=== PATIENT | female | born 1990 | race Caucasian/White ===

== ENCOUNTER 2017-07-19 16:08 | Emergency (ER) | payer BC, SELFPAY | END 2017-07-19 19:17 | disposition home or self-care (01) | PROVIDERS: Emergency Provider Emergency Medicine; Family Provider Family Medicine; PCP Family Medicine; Visit Provider Emergency Medicine | DX: R51 Headache (principal); R19.7 Diarrhea, unspecified | CPT/HCPCS: 70250; 70450; 72040; 74022; 80053; 83690; 85025; 99058; 99284 ==

== ENCOUNTER 2017-08-08 14:36 | Emergency (ER) | payer BC, SELFPAY ==
[2017-08-08 14:58] VITALS: PULSE 89; RESP 20; TEMP 36.8; O2SAT 98; BMI 46.3
[2017-08-08 19:36] LABS: Bacteria Urine Moderate (10-30); Culture Indicated Urine Specimen Cultured; Squamous Epithelial Cell Urine 1-5 /HPF; WBC Urine 1-5/HPF (0-5/HPF)
[2017-08-08 21:21] VITALS: BP 133/67; PULSE 78; RESP 16; O2SAT 98
[2017-08-09] MEDS: ONDANSETRON 4 MG ODT PO (00:03)
[2017-08-09] MEDS: NITROFURANTOIN ER 100 MG CAPSULE PO (00:04)
[2017-08-09] MEDS: ACETAMINOPHEN 325 MG TABLET 650 MG PO (00:04)
--- NOTE | 2017-08-09 00:20 | DI.US.S_ITS ---
PROCEDURE: US OB <= 14 WEEKS FETUS INDICATIONS: PAIN OUTSIDE/PRIOR DATING DATA: Last menstrual period (LMP): Not known. LMP-based estimated date of delivery (MEGAN): Not applicable. First dating scan (date and location): 08/09/17. Estimated date of delivery (MEGAN) from first dating scan: 04/04/18. TECHNIQUE: Real-time scanning was performed of the fetus and maternal pelvic organs, with image documentation. Endovaginal scanning was also performed to better visualize the fetus and maternal ovaries. COMPARISON: None. FINDINGS: Embryo: Early intrauterine identified. [place]-rump length measures 0.37 cm corresponding to ultrasound estimated gestational age of 6 weeks 0 days. heart rate measured at 100 beats per minute. Measurement variability in dating: +/- 4 weeks by LMP, +/- 7 days by mean sac diameter (use before 6 weeks gestation if crown-rump length not able to be measured), +/- 5 days by crown-rump length (up to 8 weeks 6 days gestation), +/- 7 days by crown-rump length (up to 13 weeks 6 days gestation). Maternal organs: Ovaries are sonographically normal.. Limited images through the kidneys demonstrate no hydronephrosis. IMPRESSION: Single living intrauterine with ultrasound estimated gestational age of 6 weeks 0 days corresponding to an ultrasound MEGAN of 04/04/18. Dictated by: Aminata Romero MD, PhD on 08/09/2017 at 8:41 Approved by: Aminata Romero MD, PhD on 08/09/2017 at 8:42
[2017-08-09 01:04] LABS: Add Manual Diff / Slide Review NO; Basophils Percent Auto 0.6 % (0-2); Hematocrit 38.1 % (36-46); Hemoglobin 12.8 g/dL (12.0-16.0); Lymphocytes Percent Auto 31.6 % (25-40); Mean Corpuscular HGB Conc 33.6 % (30-36); Mean Corpuscular Hemoglobin 28.9 PG (26-34); Monocytes Percent Auto 5.3 % (3-14); Neutrophils Absolute Auto 6800 /uL (3000-5900); Neutrophils Percent Auto 61.5 % (50-75); Platelet Count 271 X10^3/uL (150-400); Red Blood Cell Count 4.43 X10^6/uL (4.0-5.2); Red Cell Distribution Width 14.7 % (11.6-14.8)
[2017-08-09 01:17] LABS: Alanine Aminotransferase 57 IU/L (9-52); Albumin 4.2 g/dL (3.5-5.0); Albumin Globulin Ratio 1.3 (1.0-2.8); Alkaline Phosphatase 73 U/L (38-126); Aspartate Aminotransferase 42 IU/L (14-36); Bilirubin Total 0.5 mg/dL (0.2-1.3); Calcium 9.1 mg/dL (8.4-10.2); Estimated Glomerular Filt Rate > 60.0 mL/min (>60); Globulin 3.3 g/dL (1.7-4.1); Glucose 106 mg/dL (70-100); HEMOLYSIS < 15 (0-50); Potassium 3.9 mmol/L (3.4-5.1); Sodium 139 mmol/L (137-145); Total Protein 7.5 g/dL (6.3-8.2)
--- NOTE | 2017-08-09 01:32 | PC.NURSE ---
Received call from Alysha in blood bank. Unable to input blood type tonight. Pt's blood type is O+, Dr Mabry aware.
--- NOTE | 2017-08-09 01:34 | ED_ITS ---
HPI - Female Genitourinary General Chief complaint: Urogenital-Female Stated complaint: KIDNEY PAIN Time Seen by Provider: 08/08/17 23:18 Source: patient and RN notes reviewed Mode of arrival: ambulatory Limitations: no limitations History of Present Illness HPI Narrative: Patient is a 27-year-old female who presents with right-sided flank pain ongoing for last last started last night. She has had some lower abdominal bloating but no abnormal vaginal bleeding or discharge. She has been feeling nauseated as well. No fever chills. No vomiting. No is drools lower abdominal pain. Onset (ago): day(s) Female Urogenital Radiation: R Flank Related Data Home Medications Medication Instructions Recorded Confirmed naproxen sodium [Aleve] 220 mg PRN PRN #0 01/27/17 08/09/17 Previous Rx's Medication Instructions Recorded escitalopram oxalate [Lexapro] 10 mg PO QDAY #90 tab 02/27/17 nitrofurantoin monohyd/m-cryst 100 mg PO Q12H 7 Days #14 cap 08/09/17 [Macrobid] Allergies Allergy/AdvReac Type Severity Reaction Status Date / Time minocycline [MINOCYCLINE] Allergy Mild hives Verified 08/09/17 00:03 peanut [PEANUT] Allergy Mild gi upset Verified 08/09/17 00:03 Penicillins [PENICILLINS] Allergy Mild hives and Verified 08/09/17 00:03 vomiting citalopram [From CELEXA] Allergy Unknown rash Verified 08/09/17 00:03 Review of Systems Review of Systems All systems reviewed & are unremarkable except as noted in HPI and below Constitutional Denies chills, Denies fever(s), Denies lethargy and Denies weakness Cardiovascular Denies chest pain, Denies irregular heart rhythm, Denies lightheadedness, Denies palpitations, Denies dyspnea, Denies dyspnea on exertion and Denies orthopnea Respiratory Denies cough, Denies dyspnea, Denies dyspnea on exertion and Denies wheezing Gastrointestinal Gastrointestinal: Denies abdominal pain, Denies change in bowel habits, Denies diarrhea, Denies nausea and Denies vomiting Genitourinary Reports as per HPI and Reports amenorrhea (years) Musculoskeletal Denies back pain, Denies muscle weakness, Denies numbness and Denies tingling Neurologic Denies numbness, Denies tingling and Denies weakness Endocrine Denies palpitations Allergic/Immunologic Denies wheezing PMFSH Past Medical History Attestation statement: The following information was validated with the patient. Family history: Reports no significant family history Exam Const General: cooperative and well developed Nutritional Appearance: well nourished Orientation: alert, awake, oriented x3 and not confused HENSD Head: normocephalic and atraumatic Ears: external ears normal and TM's normal bilaterally Mouth: oral mucosae normal and moist mucous membranes Teeth and gingiva: dentition normal Throat: tonsils normal and uvula midline Neck Neck: normal visual inspection, trachea midline, No lymphadenopathy, No midline deformity and No JVD Lymphatic: No lymphedema Resp Effort & Inspection: normal respiratory effort, able to speak in complete sentences, no respiratory distress and no use of accessory muscles Auscultation: clear to auscultation bilaterally, no rales, no rhonchi and no wheezes Cardio Rate: regular rate Rhythm: regular rhythm Heart Sounds: no click, no gallops, no murmurs and no rubs Pulses: normal peripheral pulses GI Inspection: non-distended Palpation: soft, no hepatosplenomegaly, No guarding, No pulsatile mass and No tender Auscultation: normal bowel sounds Other: Mild right CVA tenderness no left CVA tenderness Neuro General: alert, oriented x3 and gait normal Speech: speech normal Sensory Exam: no sensory deficits noted MDM - Female Genitourinary Medical Records Attestation: I reviewed the patient's medical records. Lab Data Attestation: I reviewed the patient's lab results. Result diagrams: 08/09/17 00:51 08/09/17 00:51 Lab Results 08/08/17 08/08/17 08/08/17 Range/Units 18:30 23:35 23:35 WBC Cancelled RBC Cancelled Hgb Cancelled Hct Cancelled MCV Cancelled MCH Cancelled MCHC Cancelled RDW Cancelled Plt Count Cancelled Neut % (Auto) Cancelled Lymph % (Auto) Cancelled [place] % (Auto) Cancelled Eos % (Auto) Cancelled Baso % (Auto) Cancelled Neut # (Auto) Cancelled Sodium Cancelled Potassium Cancelled Chloride Cancelled Carbon Dioxide Cancelled BUN Cancelled Creatinine Cancelled Estimated GFR Cancelled BUN/Creatinine Ratio Cancelled Glucose Cancelled Calcium Cancelled Total Bilirubin Cancelled AST Cancelled ALT Cancelled Alkaline Phosphatase Cancelled Total Protein Cancelled Albumin Cancelled Globulin Cancelled Albumin/Globulin Ratio Cancelled HCG, Quant Cancelled Specimen Hemolysis Cancelled Urine WBC 1-5/hpf (0-5/HPF) Ur Squamous Epith Cells 1-5 /hpf Urine Bacteria Moderate (10-30) H (None) Ur Culture Indicated? Specimen cultured Micro UA Comment Not Reportable Blood Type 08/08/17 08/09/17 08/09/17 Range/Units 23:35 00:51 00:51 WBC 11.0 RBC 4.43 Hgb 12.8 Hct 38.1 MCV 86.0 MCH 28.9 MCHC 33.6 RDW 14.7 Plt Count 271 Neut % (Auto) 61.5 Lymph % (Auto) 31.6 [place] % (Auto) 5.3 Eos % (Auto) 1.0 L Baso % (Auto) 0.6 Neut # (Auto) 6800 H Sodium 139 Potassium 3.9 Chloride 103.0 Carbon Dioxide 24.0 BUN 8.0 Creatinine 0.50 L Estimated GFR > 60.0 BUN/Creatinine Ratio 16.0 Glucose 106 H Calcium 9.1 Total Bilirubin 0.5 AST 42 H ALT 57 H Alkaline Phosphatase 73 Total Protein 7.5 Albumin 4.2 Globulin 3.3 Albumin/Globulin Ratio 1.3 HCG, Quant 6649.3 Specimen Hemolysis Urine WBC (0-5/HPF) Ur Squamous Epith Cells Urine Bacteria (None) Ur Culture Indicated? 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 Discharge Plan Departure Patient Disposition: Home, Self-Care Clinical Impression: , UTI (urinary tract infection) Discharge Date/Time: 08/09/17 01:44 Interventions: ED Discharge Assessment Last Done: 08/09/17 01:43 Instructions: Common Discomforts and Bodily Changes During , DI for Urinary Tract Infection (UTI) Activity Restrictions/Additional Instructions: CONGRATULATIONS!!!! Blood type O+ Some blood work is still pending ultrasound does show on 6 week fetus -take antibiotic as directed until gone -take Tylenol if needed for pain -call Dr. Banks's office to schedule follow-up appointment and care Return to ER if you should have any increasing abdominal pain, vaginal bleeding , fever Prescriptions: New nitrofurantoin monohyd/m-cryst [Macrobid] 100 mg capsule 100 mg PO Q12H 7 Days Qty: 14 RF: 0 No Action naproxen sodium [Aleve] 220 MG tablet 220 mg PRN PRN (Reason: Pain (Scale Score 1-3)) Qty: 0 RF: 0 escitalopram oxalate [Lexapro] 10 MG tablet 10 mg PO QDAY Qty: 90 RF: 3 Referrals: Ned Banks MD [Primary Care Provider] -
[2017-08-09 01:43] VITALS: BP 128/84; PULSE 86; RESP 16; TEMP 36.8; O2SAT 97
[2017-08-22 16:41] LABS: HCG Quantitative /Beta subunit 6649.3 mIU/mL
== END 2017-08-09 01:44 | disposition home or self-care (01) ==
PROVIDERS: Nurse Practitioner Family; Emergency Provider Emergency Medicine; Family Provider Family Medicine; PCP Family Medicine
DX: N39.0 Urinary tract infection, site not specified (principal); Z3A.01 Less than 8 weeks gestation of pregnancy
CPT/HCPCS: 36415; 76801; 76817; 80053; 81003; 81015; 81025; 84702; 85025; 86900; 86901; 87086; 99282; 99284

== ENCOUNTER → 2017-09-04 12:03 | Outpatient (CLI) | payer BC, SELFPAY ==
[2017-09-04 12:11] LABS: RBC Urine None Seen (0-5/HPF)
[2017-09-04 13:08] LABS: Add Manual Diff / Slide Review NO; Basophils Percent Auto 0.2 % (0-2); Eosinophils Percent Auto 0.9 % (2-4); Hematocrit 38.6 % (36-46); Hemoglobin 13.3 g/dL (12.0-16.0); Lymphocytes Percent Auto 27.1 % (25-40); Mean Corpuscular HGB Conc 34.4 % (30-36); Mean Corpuscular Hemoglobin 29.3 PG (26-34); Monocytes Percent Auto 6.8 % (3-14); Neutrophils Absolute Auto 6700 /uL (3000-5900); Platelet Count 323 X10^3/uL (150-400); Red Blood Cell Count 4.54 X10^6/uL (4.0-5.2); White Blood Cell Count 10.3 X10^3/uL (4.5-11.0)
[2017-09-04 13:37] LABS: Appearance Urine UA CLEAR; Bilirubin Urine UA NEGATIVE (NEGATIVE); Color Urine UA YELLOW; Glucose Urine UA NEGATIVE (Normal); Ketones Urine UA NEGATIVE (NEGATIVE); Leukocyte Esterase Urine UA NEGATIVE (NEGATIVE); Nitrite Urine UA Negative (Negative); Occult Blood Urine UA TRACE-INTACT (Negative); Protein Urine UA NEGATIVE (Negative); Urobilinogen Urine UA 0.2 E.U./dL (0.2)
[2017-09-04 13:47] LABS: Bacteria Urine Moderate (10-30); Culture Indicated Urine Cult Not Indicated; Squamous Epithelial Cell Urine 1-5 /HPF; WBC Urine 0-1/HPF (0-5/HPF)
[2017-09-04 17:07] LABS: Hepatitis B Surface Antigen NEGATIVE s/c (NEGATIVE); Rubella Antibody IgG 23.7 IU/mL (>15)
[2017-09-05 10:25] LABS: HIV 1 and 2 Antibody NEGATIVE (NEGATIVE); Hep C Virus Ab w/Reflex Quant NEGATIVE s/c (NEGATIVE)
== END ==
PROVIDERS: Obstetrics & Gynecology; Family Provider Family Medicine; PCP Family Medicine; Visit Provider Family Medicine
DX: Z34.91 Encounter for supervision of normal pregnancy, unspecified, first trimester (principal)
CPT/HCPCS: 36415; 80055; 81001; 86703; 86787; 86803; 86850; 86900; 86901

== ENCOUNTER → 2017-10-06 13:03 | Outpatient (CLI) | payer BC, SELFPAY | PROVIDERS: Family Provider Family Medicine; PCP Family Medicine; Visit Provider Physician Assistant | DX: N39.0 Urinary tract infection, site not specified (principal) | CPT/HCPCS: 87086 ==

== ENCOUNTER → 2017-11-06 09:01 | Outpatient (CLI) | payer BC, SELFPAY ==
[2017-11-11 16:05] LABS: AFP, Serum 40.6 ng/mL; Calc Gestational Age 18.7; Cigarette Smoker N; Donated Egg NOT GIVEN; Donor Egg Age NOT GIVEN; Estriol, Free 1.85 ng/mL; Inhibin A, Dimeric 105 pg/mL; Maternal Weight 307 lbs; Number of Fetuses 1; Previous Pregnancy Down Syndro NOT GIVEN; hCG, MoM 0.25; hCG, Serum 3.9 IU/mL
== END ==
PROVIDERS: Family Provider Family Medicine; PCP Family Medicine; Visit Provider Family Medicine
DX: Z3A.17 17 weeks gestation of pregnancy (principal)
CPT/HCPCS: 36415; 82105; 82677; 84702; 86336

== ENCOUNTER → 2017-11-17 07:40 | Outpatient (CLI) | payer BC, SELFPAY ==
--- NOTE | 2017-11-17 07:41 | DI.US.S_ITS ---
PROCEDURE: US OB >= 14 WEEKS FETUS INDICATIONS: 20 WEEKS ANATOMIC SURVEY OUTSIDE/PRIOR DATING DATA: Last menstrual period (LMP): Not available. LMP-based estimated date of delivery (MEGAN): None available. First dating scan (date and location): 08/09/17. Estimated date of delivery (MEGAN) from first dating scan: 04/04/18, plus or -5 days. TECHNIQUE: Real-time scanning was performed of the fetus, with image documentation and biometric measurements. Endovaginal scanning: Not needed for this study COMPARISON: None. FINDINGS: General: A single living intrauterine gestation is present. Presentation: Vertex. Placenta: Placental position is fundal, without previa. Amniotic fluid index: 14.7 cm, normal range is 5-24 cm. heart rate: 149 beats per minute. Maternal cervical canal: 3.2 cm long. Normal lower limit is 2.5 cm. biometrics: Biparietal diameter: 5.1 cm, 21 weeks 4 days Head circumference: 19.4 cm, 21 weeks 4 days Abdominal circumference: 14.8 cm, 20 weeks 1 day Femur length: 3.6 cm, 21 weeks 4 days Estimated gestational age from initial scan: 20 weeks 2 days Composite gestational age from present scan: 21 weeks 2 days Estimated weight and percentile: 382 g, 77th percentile Measurement variability for biometric dating: +/- 7 days from 14 weeks to 15 weeks 6 days gestation, +/- 10 days from 16 weeks to 21 weeks 6 days gestation, +/- 2 weeks from 22 weeks to 27 weeks 6 days gestation, +/- 3 weeks for 28 weeks gestation or later. weight reference: 4500 g or EFW >90/95% is considered macrosomia or large for gestational age. EFW <10% is small for gestational age. EFW 5% or less is considered intra-uterine growth restriction. Anatomic survey: Neuro: Ventricles are non-dilated at less than 10 mm. Cisterna magna is normal at 3-11 mm. Cerebellum is normal in size and morphology. Nuchal skin fold: Normal at less than 6 mm between 14-21 weeks gestational age. Face: Nose and lips, facial profile are normal. Spine: No evidence for spina bifida. Heart: 4-chambered heart is present, with normal ventricular outflow tracts. Diaphragm: Diaphragm is intact. Stomach: Left-sided stomach is present. Kidneys: No hydronephrosis. Normal is less than 5 mm in 2nd trimester, less than 7 mm in 3rd trimester. Cord: 3-vessel cord has orthotopic insertion. Bladder: Normal in size. Extremities: All 4 extremities identified. IMPRESSION: Appropriate interval growth, no anomalies seen. The delivery date is projected to be centered on 04/04/18, plus or -5 days, based on the first OB ultrasound (most accurate dating). Dictated by: Reagan Moreira M.D. on 11/17/2017 at 9:24 Approved by: Reagan Moreira M.D. on 11/17/2017 at 9:26
== END ==
PROVIDERS: Family Provider Family Medicine; PCP Family Medicine; Visit Provider Family Medicine
DX: Z34.92 Encounter for supervision of normal pregnancy, unspecified, second trimester (principal); Z3A.21 21 weeks gestation of pregnancy
CPT/HCPCS: 76811

== ENCOUNTER 2017-11-22 16:40 | Emergency (ER) | payer BC, SELFPAY ==
[2017-11-22 16:54] VITALS: BP 136/90; PULSE 87; RESP 16; TEMP 36.2; O2SAT 100; BMI 51.7
--- NOTE | 2017-11-22 17:34 | ED.NEUROSD ---
HPI - Neuro Symptoms/Deficit General Chief Complaint: Neuro Symptoms/Deficit Stated Complaint: STATES HAS A SHUNT, BABY HAS POSSIBLY MOVED IT Time Seen by Provider: 11/22/17 17:21 Source: patient Mode of arrival: ambulatory Limitations: no limitations History of Present Illness HPI Narrative: Patient is a 20 week EGA with a history of hydrocephalus and a [employer] shunt in place here for evaluation of concern for possible [employer] shunt issues. Patient states that for the past day or so she has had right-sided pain that has extended up into her neck. She is concerned that the baby may have ?dislodged ?the [employer] shunt. She states she had pain in her right side like this after she had the shunt placed. She was told by the operative surgeon that it was postoperative pain. She states that the pain is in her right flank and extends up to her right neck. She denies any headaches or vision changes which were the symptoms that she was having prior to the shunt placement. No fevers. She states that after she took her brawl off she started to have improvement of the symptoms. No vaginal bleeding. No abdominal pain. She called her OB doctor who told her to come to the emergency department. On Anticoagulants: No Related Data Home Medications Medication Instructions Recorded Confirmed acetaminophen 325 mg tablet 325 mg PO Q6H PRN 10/06/17 10/06/17 Previous Rx's Medication Instructions Recorded ondansetron 4 mg disintegrating 4 mg PO Q6H PRN #20 tab 11/14/17 tablet Allergies Allergy/AdvReac Type Severity Reaction Status Date / Time minocycline [MINOCYCLINE] Allergy Mild hives Verified 10/06/17 12:26 peanut [PEANUT] Allergy Mild gi upset Verified 10/06/17 12:26 Penicillins [PENICILLINS] Allergy Mild hives and Verified 10/06/17 12:26 vomiting citalopram [From CELEXA] Allergy Unknown rash Verified 10/06/17 12:26 flu vaccine AdvReac Severe Hx PTC can Uncoded 09/04/17 13:15 exacerbate symptoms Review of Systems Constitutional Denies fever(s), Denies frequent falls and Denies headache(s) Eyes Denies blurry vision, Denies change in vision and Denies diplopia ENT Ears, Nose, Mouth, and Throat: Denies vertigo, Denies dizziness, Denies facial pain and Denies headache(s) Cardiovascular Denies chest pain, Denies syncope, Denies edema and Denies dyspnea Respiratory Denies dyspnea Gastrointestinal Gastrointestinal: Denies abdominal pain, Denies nausea and Denies vomiting Genitourinary Denies dysuria Musculoskeletal Denies myalgias, Denies arthralgias and Denies numbness Integumentary/Breasts Denies lesions and Denies rash Neurologic Denies confusion, Denies vertigo, Denies dizziness, Denies syncope, Denies frequent falls, Denies headache(s) and Denies numbness Psychiatric Denies confusion Hematologic/Lymphatic Denies easy bleeding and Denies easy bruising [facility] Social History Smoking Status: Never smoker Exam Initial Vital Signs Initial Vital Signs: Vital Signs Temperature 97.1 F L 11/22/17 16:54 Pulse Rate 87 11/22/17 16:54 Respiratory Rate 16 11/22/17 16:54 Blood Pressure 136/90 H 11/22/17 16:54 Pulse Oximetry 100 11/22/17 16:54 Const General: cooperative, healthy appearing and comfortable HENMT Head: normal to inspection and normocephalic Resp Effort & Inspection: normal respiratory effort Auscultation: clear to auscultation bilaterally Cardio Rate: regular rate Rhythm: regular rhythm Skin Lesions: no lesions Rashes: no rashes Neuro General: alert, awake and oriented x3 Cranial Nerves: CN's II-XI intact bilaterally Cognition: normal cognition Speech: speech normal Gait: normal gait Motor: muscle tone normal throughout Sensory Exam: no sensory deficits noted Extrem General: normal to inspection Psych Appearance: grossly normal and well kempt Course Vital Signs - 8 hr 11/22/17 16:54 Temperature 97.1 F L Pulse Rate 87 Respiratory Rate 16 Blood Pressure 136/90 H Pulse Oximetry 100 MDM - Neuro Symptoms/Deficit [facility] Narrative Medical decision making narrative: Patient reports were improvement of symptoms after removing her brought here in the ER. I she has no symptoms such as headache or vision changes which is what she had when she had the shunt placed to begin with. We did discuss imaging however I feel that the radiation exposure especially during would not warrant the concern for abnormalities currently. The patient agrees with this. Patient was given return precautions. She expressed understanding and agreement with plan. Discharge Plan Departure Patient Disposition: Home Clinical Impression: Right-sided chest pain, Instructions: Hydrocephalus Activity Restrictions/Additional Instructions: Keep all of your scheduled medical appointments. Return to the emergency department for any new or worsening symptoms Prescriptions: No Action acetaminophen [Tylenol] 325 mg tablet 325 mg PO Q6H PRNRF: 0 ondansetron [Zofran ODT] 4 mg tablet,disintegrating 4 mg PO Q6H PRN (Reason: nausea and vomiting) Qty: 20 RF: 1
--- NOTE | 2017-11-22 18:01 | PC.NURSE ---
Pt has a shunt for hx of hydrocephalus. She is 20 weeks and has right sided back pain. She is concerned that the baby has disrupted the shunt. She did have a tightly fitted bra on and since removing it and resting, her symptoms have resolved. FHT 145.
[2017-11-22 18:29] VITALS: BP 135/87; PULSE 89; RESP 15; O2SAT 99
== END 2017-11-22 18:31 | disposition home or self-care (01) ==
PROVIDERS: Emergency Provider Emergency Medicine; Family Provider Family Medicine; PCP Family Medicine
DX: O26.892 Other specified pregnancy related conditions, second trimester (principal); R07.89 Other chest pain; Z98.2 Presence of cerebrospinal fluid drainage device; Z3A.20 20 weeks gestation of pregnancy
CPT/HCPCS: 99282; 99283; 99291

== ENCOUNTER → 2018-01-03 07:38 | Outpatient (CLI) | payer BC, SELFPAY ==
[2018-01-03 10:24] LABS: Hematocrit 36.9 % (36-46); Hemoglobin 12.7 g/dL (12.0-16.0)
[2018-01-03 11:07] LABS: GTT (PREG) 1 Hour PP 50gm Dose 134 mg/dL (76-139)
== END ==
PROVIDERS: PCP Family Medicine; Visit Provider Family Medicine
DX: Z34.02 Encounter for supervision of normal first pregnancy, second trimester (principal); Z3A.26 26 weeks gestation of pregnancy
CPT/HCPCS: 36415; 82950; 85014; 85018

== ENCOUNTER → 2018-01-29 14:57 | Outpatient (CLI) | payer BC, SELFPAY | END | disposition home or self-care (01) | LOC: LABOR 15:10 → OB 01-31 15:40 | PROVIDERS: Family Provider Family Medicine; PCP Family Medicine; Visit Provider Family Medicine | DX: Z34.93 Encounter for supervision of normal pregnancy, unspecified, third trimester (principal); Z3A.30 30 weeks gestation of pregnancy; O36.8130 Decreased fetal movements, third trimester, not applicable or unspecified | CPT/HCPCS: 59025; G0378; G0379 ==

== ENCOUNTER 2018-02-16 14:03 | Outpatient (CLI) | payer BC, SELFPAY | END 2018-02-16 15:30 | disposition home or self-care (01) | LOC: LABOR 15:23 → OB 02-19 16:05 | PROVIDERS: Family Provider Family Medicine; PCP Family Medicine; Visit Provider Family Medicine | DX: Z34.83 Encounter for supervision of other normal pregnancy, third trimester (principal); Z3A.33 33 weeks gestation of pregnancy | CPT/HCPCS: 59025; G0378; G0379 ==

== ENCOUNTER → 2018-03-07 15:38 | Outpatient (CLI) | payer BC, SELFPAY ==
[2018-03-08 15:11] LABS: Strep Grp B PCR NEG for Grp B Strep
== END ==
PROVIDERS: Family Provider Family Medicine; PCP Family Medicine; Visit Provider Family Medicine
DX: Z34.03 Encounter for supervision of normal first pregnancy, third trimester (principal)
CPT/HCPCS: 87653

== ENCOUNTER 2018-03-12 10:18 | Observation (INO) | payer BC, SELFPAY ==
[2018-03-12 12:03] LABS: Aspartate Aminotransferase 20 IU/L (14-36); Blood Urea Nitrogen 8 mg/dL (7-17); Estimated Glomerular Filt Rate > 60.0 mL/min (>60); Uric Acid 5.7 mg/dL (2.5-6.2)
[2018-03-12 12:08] LABS: Add Manual Diff / Slide Review NO; Basophils Percent Auto 0.3 % (0-2); Eosinophils Percent Auto 0.9 % (2-4); Hematocrit 38.3 % (36-46); Hemoglobin 12.7 g/dL (12.0-16.0); Lymphocytes Percent Auto 20.8 % (25-40); Mean Corpuscular HGB Conc 33.3 % (30-36); Mean Corpuscular Hemoglobin 29.3 PG (26-34); Monocytes Percent Auto 5.5 % (3-14); Neutrophils Absolute Auto 7200 /uL (3000-5900); Neutrophils Percent Auto 72.5 % (50-75); Platelet Count 282 X10^3/uL (150-400); Red Blood Cell Count 4.35 X10^6/uL (4.0-5.2); Red Cell Distribution Width 14.7 % (11.6-14.8)
[2018-03-12 12:42] LABS: Bilirubin Urine UA NEGATIVE (NEGATIVE); Color Urine UA YELLOW; Glucose Urine UA NEGATIVE (Normal); Ketones Urine UA NEGATIVE (NEGATIVE); Leukocyte Esterase Urine UA 1+ (NEGATIVE); Nitrite Urine UA NEGATIVE (Negative); Occult Blood Urine UA NEGATIVE (Negative); Protein Urine UA NEGATIVE (Negative); Specific Gravity Urine UA 1.025 (1.000-1.035); Urobilinogen Urine UA 0.2 E.U./dL (0.2); pH Urine UA 5.5 (4.5-8.0)
[2018-03-12 12:50] LABS: Appearance Urine UA Slightly Cloudy; RBC Urine None Seen (0-5/HPF); WBC Urine 5-10/HPF (0-5/HPF)
[2018-03-12 12:51] LABS: Amorphous Sediment Urine 1+; Bacteria Urine Moderate (10-30); Culture Indicated Urine Specimen Cultured; Mucus Urine 1+ (Negative); Squamous Epithelial Cell Urine 5-10 /HPF
--- NOTE | 2018-03-12 13:31 | DI.US.S_ITS ---
PROCEDURE: US OB BIOPHYSICAL PROFILE INDICATIONS: POSSIBLE PIH OUTSIDE/PRIOR DATING DATA: Last menstrual period (LMP): Unknown. First dating scan (date and location): 08/09/17. Estimated date of delivery (MEGAN) from first dating scan: 04/04/18. TECHNIQUE: Real-time scanning was performed of the fetus for biophysical profile, with image documentation. Color and pulse Doppler interrogation was also performed of the umbilical artery near its insertion into the placenta. COMPARISON: [facility], , OB >= 14 WEEKS FETUS, 11/17/2017, 7:54. FINDINGS: General: A single living intrauterine gestation is present. Presentation: Vertex Placenta: Placental position is anterior, without previa. Amniotic fluid index: 14.1 cm, normal range is 5-24 cm. heart rate: 120 beats per minute. Maternal cervical canal: Not well-seen. Estimated gestational age from initial scan: 36 weeks 5 days. Biophysical profile: Tone: 2 points. Movement: 2 points. Respiration: 0 points. Largest pocket of fluid: 2 points. IMPRESSION: 1. Single living intrauterine in vertex position redemonstrated. 2. Biophysical profile score of 6/8 with no aspiration visualized during examination. Dictated by: Pravin Cardenas M.D. on 03/12/2018 at 15:17 Approved by: Pravin Cardenas M.D. on 03/12/2018 at 15:29
== END 2018-03-12 17:00 | disposition home or self-care (01) ==
PROVIDERS: Admitting Provider Family Medicine; Family Provider Family Medicine; PCP Family Medicine; Visit Provider Family Medicine
DX: Z34.83 Encounter for supervision of other normal pregnancy, third trimester (principal); Z3A.36 36 weeks gestation of pregnancy
CPT/HCPCS: 36415; 59025; 59050; 76819; 81003; 81015; 84450; 84550; 85025; 87086; 96360; 96361; G0378; G0379

== ENCOUNTER 2018-03-22 17:35 | Outpatient (CLI) | payer BC, SELFPAY | END 2018-03-22 18:48 | disposition home or self-care (01) | LOC: OB 03-28 13:11 | PROVIDERS: Family Provider Family Medicine; PCP Family Medicine; Visit Provider Family Medicine | DX: Z34.83 Encounter for supervision of other normal pregnancy, third trimester (principal); Z3A.36 36 weeks gestation of pregnancy | CPT/HCPCS: 59025; G0378; G0379 ==

== ENCOUNTER 2018-03-27 22:57 | Observation (INO) | payer BC, SELFPAY | END 2018-03-27 23:55 | disposition home or self-care (01) | LOC: LABOR 22:59 | PROVIDERS: Admitting Provider Family Medicine; Family Provider Family Medicine; PCP Family Medicine; Visit Provider Family Medicine | DX: Z34.90 Encounter for supervision of normal pregnancy, unspecified, unspecified trimester (principal) | CPT/HCPCS: G0378; G0379 ==

== ENCOUNTER 2018-03-28 06:12 | Inpatient (IN) | payer BC, SELFPAY ==
[2018-03-28 07:28] VITALS: BP 128/79
[2018-03-28] MEDS: LACTATED RINGERS 1,000 ML 100 ML IV ×4 (07:50→22:00)
[2018-03-28] MEDS: OXYTOCIN PREMIX 30 UNIT/500 ML PLAST..BAG IV (07:55)
--- NOTE | 2018-03-28 08:23 | PM.OBHP.1 ---
OB HPI Date/Time Date of admission: 03/28/18 Date Patient Seen: 03/28/18 Time Patient Seen: 09:00 History of Present Condition Chief complaint: Evaluation of labor : 1 Para: 0 Estimated Date of Delivery: 04/04/18 Estimated Gestational Age (weeks): 39w0d Narrative: Ivelisse Jordan is a 27 year old at 39w0d who presented with ROM at approximately 10:30pm last night. She reports having a large gush of fluid, and has continued to leak since that time. The fluid was clear appearing. She denies any vaginal bleeding. She has not had any contractions or cramping since ROM. She has been feeling her baby move regularly. The pt denies any recent worsening of her headaches. History of Present care: good care and initiated at week # (10) Dating criteria: LMP confirmed by 1st trimester US Ultrasounds: normal 1st trimester US and normal mid trimester US Obstetrical complications: none Medical complications: other (pseudotumor cerebri with DIE PRESSER shunt in place with pressure build-up during causing headaches) Preadmission Labs Blood type: O (+) positive -: Antibody screen: negative, GBS status: negative, HBsAG: negative, HIV: negative and RPR/VDLR: negative -: Chlamydia screen: not detected and Gonorrhea screen: not detected -: Rubella: immune and Varicella: immune HCT: 36.9 HCAB: negative PAP: Normal Urine: negative 1 hr GTT: 134 Evaluation Evaluation Baseline heart rate: 130 Variability: Moderate (11-25) monitor accelerations: Present monitor decelerations: Absent Contraction Frequency (minutes): 6 Uterine Contraction Intensity: Mild Category of Tracing: I Cervical dilation (cm): 2 Cervical effacement (%): 80 station: -2 [facility] Medical History Anxiety (Chronic) Asthma (Chronic) Chronic headaches (Chronic) Depression (Chronic) Pseudotumor cerebri (Chronic) Surgical History Status post cholecystectomy (Resolved) Status post tonsillectomy and adenoidectomy (Resolved) Family History Grandfather Colon cancer Myocardial infarction Social History Smoking Status: Never smoker Meds Home Medications Medication Instructions Recorded Confirmed Type acetaminophen 325 mg tablet 325 mg PO Q6H PRN 10/06/17 03/28/18 History Allergies Allergy/AdvReac Type Severity Reaction Status Date / Time minocycline [MINOCYCLINE] Allergy Mild hives Verified 02/15/18 11:54 peanut [PEANUT] Allergy Mild gi upset Verified 02/15/18 11:54 Penicillins [PENICILLINS] Allergy Mild hives and Verified 02/15/18 11:54 vomiting citalopram [From CELEXA] Allergy Unknown rash Verified 02/15/18 11:54 flu vaccine AdvReac Severe Hx PTC can Uncoded 02/15/18 11:54 exacerbate symptoms Exam Vital Signs (past 8 hours): - 03/28/18 07:28 Blood Pressure 128/79 Narrative Exam Narrative: Gen: NAD, laying comfortably in bed, appears well CV: RRR, no murmurs Resp: clear to auscultation bilaterally Abd: soft, nontender, gravid Ext: trace edema Objective Labs Result Diagrams: 03/28/18 07:50 Assessment and Plan (1) 39 weeks gestation of : Current visit: Yes Status: Acute (2) PROM (premature rupture of membranes): Current visit: Yes Status: Acute (3) Pseudotumor cerebri: Current visit: Yes Status: Acute (4) S/P DIE PRESSER shunt: Current visit: Yes Status: Acute Plan: Plan: 27yo at 39w0d who presented with PROM with clear fluid. No painful contractions at admission. complicated by pseudotumor cerebri s/p DIE PRESSER shunt placed prior to , with pressure issues due to increased intraabdominal pressure causing headaches. Discussed with Neurosurgery during , cleared for vaginal or delivery. No other complications with . Of note, pt is morbidly obese with BMI of 48. Rh positive, GBS negative. - Expectant management, anticipate - Start pitocin, titrate as tolerated - Epidural for pain control when desired. Anesthesiology has already come and talked with the pt, okay for procedure. - FHT reassuring - GBS negative, no antibiotics indicated at this time Pts care will be passed on to Dr Whitman. This provider will update her on care.
--- NOTE | 2018-03-28 08:28 | P.HPOB_ITS ---
OB HPI Date/Time Date of admission: 03/28/18 Date Patient Seen: 03/28/18 Time Patient Seen: 09:00 History of Present Condition Chief complaint: Evaluation of labor : 1 Para: 0 Estimated Date of Delivery: 04/04/18 Estimated Gestational Age (weeks): 39w0d Narrative: Ivelisse Jordan is a 27 year old at 39w0d who presented with ROM at approximately 10:30pm last night. She reports having a large gush of fluid, and has continued to leak since that time. The fluid was clear appearing. She denies any vaginal bleeding. She has not had any contractions or cramping since ROM. She has been feeling her baby move regularly. The pt denies any recent worsening of her headaches. History of Present care: good care and initiated at week # (10) Dating criteria: LMP confirmed by 1st trimester US Ultrasounds: normal 1st trimester US and normal mid trimester US Obstetrical complications: none Medical complications: other (pseudotumor cerebri with BALANCE WHEEL ARM BURNISHER shunt in place with pressure build-up during causing headaches) Preadmission Labs Blood type: O (+) positive -: Antibody screen: negative, GBS status: negative, HBsAG: negative, HIV: negative and RPR/VDLR: negative -: Chlamydia screen: not detected and Gonorrhea screen: not detected -: Rubella: immune and Varicella: immune HCT: 36.9 HCAB: negative PAP: Normal Urine: negative 1 hr GTT: 134 Evaluation Evaluation Baseline heart rate: 130 Variability: Moderate (11-25) monitor accelerations: Present monitor decelerations: Absent Contraction Frequency (minutes): 6 Uterine Contraction Intensity: Mild Category of Tracing: I Cervical dilation (cm): 2 Cervical effacement (%): 80 station: -2 [facility] Medical History Anxiety (Chronic) Asthma (Chronic) Chronic headaches (Chronic) Depression (Chronic) Pseudotumor cerebri (Chronic) Surgical History Status post cholecystectomy (Resolved) Status post tonsillectomy and adenoidectomy (Resolved) Family History Grandfather Colon cancer Myocardial infarction Social History Smoking Status: Never smoker Meds Home Medications Medication Instructions Recorded Confirmed Type acetaminophen 325 mg tablet 325 mg PO Q6H PRN 10/06/17 03/28/18 History Allergies Allergy/AdvReac Type Severity Reaction Status Date / Time minocycline [MINOCYCLINE] Allergy Mild hives Verified 02/15/18 11:54 peanut [PEANUT] Allergy Mild gi upset Verified 02/15/18 11:54 Penicillins [PENICILLINS] Allergy Mild hives and Verified 02/15/18 11:54 vomiting citalopram [From CELEXA] Allergy Unknown rash Verified 02/15/18 11:54 flu vaccine AdvReac Severe Hx PTC can Uncoded 02/15/18 11:54 exacerbate symptoms Exam Vital Signs (past 8 hours): - 03/28/18 07:28 Blood Pressure 128/79 Narrative Exam Narrative: Gen: NAD, laying comfortably in bed, appears well CV: RRR, no murmurs Resp: clear to auscultation bilaterally Abd: soft, nontender, gravid Ext: trace edema Objective Labs Result Diagrams: 03/28/18 07:50 Assessment and Plan (1) 39 weeks gestation of : Current visit: Yes Status: Acute (2) PROM (premature rupture of membranes): Current visit: Yes Status: Acute (3) Pseudotumor cerebri: Current visit: Yes Status: Acute (4) S/P BALANCE WHEEL ARM BURNISHER shunt: Current visit: Yes Status: Acute Plan: Plan: 27yo at 39w0d who presented with PROM with clear fluid. No painful contractions at admission. complicated by pseudotumor cerebri s/p BALANCE WHEEL ARM BURNISHER shunt placed prior to , with pressure issues due to increased intraabdominal pressure causing headaches. Discussed with Neurosurgery during , cleared for vaginal or delivery. No other complications with . Of note, pt is morbidly obese with BMI of 48. Rh positive, GBS negative. - Expectant management, anticipate - Start pitocin, titrate as tolerated - Epidural for pain control when desired. Anesthesiology has already come and talked with the pt, okay for procedure. - FHT reassuring - GBS negative, no antibiotics indicated at this time Pts care will be passed on to Dr Whitman. This provider will update her on care.
[2018-03-28 08:44] LABS: Add Manual Diff / Slide Review NO; Basophils Percent Auto 0.2 % (0-2); Hematocrit 38.1 % (36-46); Lymphocytes Percent Auto 22.3 % (25-40); Mean Corpuscular HGB Conc 34.1 % (30-36); Mean Corpuscular Hemoglobin 29.8 PG (26-34); Mean Corpuscular Volume 87.6 fL (80-100); Monocytes Percent Auto 6.7 % (3-14); Neutrophils Absolute Auto 7400 /uL (1500-7000); Neutrophils Percent Auto 69.8 % (50-75); Platelet Count 281 X10^3/uL (150-400); Red Blood Cell Count 4.35 X10^6/uL (4.0-5.2); Red Cell Distribution Width 14.9 % (11.6-14.8); White Blood Cell Count 10.6 X10^3/uL (4.5-11.0)
--- NOTE | 2018-03-28 19:50 | PM.PREOP ---
Pre-operative Note Interval Note Pre-op Check: Yes History & Physical Reviewed by Physician and Yes Exam Performed Changes: Yes H&P completed within 30 days and has changed as indicated here:: Failure to progress in labor
--- NOTE | 2018-03-28 19:51 | PM.OBPNLAB ---
Date/Time Date Patient Seen: 03/28/18 Time Patient Seen: 19:51 Pain Control Pain control: epidural Pelvic Exam Dilation (cm): 6 Effacement (%): 80 station: -1 Contractions Contractions on admission: regular Monitor mode: Internal Pitocin rate (mU/min): 23 Contraction frequency (min): 4 Contraction duration (min): 1 Contraction pattern: Regular Contraction intensity: Strong/Firm Intrauterine tone measurement: 90 Status status: Category l Heart Rate Baseline: 130 Monitor Accelerations: Present Monitor Decelerations: Absent Monitor Variability: Moderate Assessment and Plan Assessment: other (Patient with failure to progress in labor) Plan: Comments: Consent form was reviewed with the patient. Risks of damage to internal structures such as bowel bladder and ureters increased risk of infection increased risk of bleeding enough to require a blood transfusion discussed. Consent form signed.
[2018-03-28] MEDS: CEFAZOLIN 2 GM/100 ML FROZ.PIGGY IV (20:15)
--- NOTE | 2018-03-28 20:34 | SUR.OPER ---
Supine on Padded OR bed, head on pillow, safety belt at thigh, arms secured on padded arm boards at <90 degrees abduction. Bump under right buttock. Legs uncrossed with pillow under knees, gel pad to heels, tape over blanket to lower legs.
--- NOTE | 2018-03-28 20:48 | SUR.OPER ---
FHT's 141. Cord blood x 2 and placenta to OB with L&D Rn
--- NOTE | 2018-03-28 20:55 | SUR.OPER ---
Time of 2037 live male.
[2018-03-28 21:17] VITALS: BP 131/68; PULSE 92; RESP 16; TEMP 37.2; O2SAT 99
[2018-03-28] MEDS: fentaNYL 100 MCG/2 ML INJ 50 MCG IV ×2 (21:20→21:27)
[2018-03-28 21:22] VITALS: BP 133/74; PULSE 92; RESP 16; O2SAT 98
--- NOTE | 2018-03-28 21:26 | PM.OP.1 ---
Operative Date/Time/Diagnoses Date of procedure: 03/28/18 Time of procedure: 21:26 Pre-op diagnosis: First stage arrest Post-op diagnosis: same Procedure & Clinicians Procedure: Primary low-transverse section Same procedure as scheduled: Yes Indications: First stage arrest Surgeon: Annabelle Mendieta Kosher Inspector: Winter Whitman Click Yes if Unassisted: No Anesthesia Type: Epidural Operative Notes Findings: Normal tubes ovaries and uterus. Viable male weighing 8 lb 10 oz Closure Type: primary Specimen(s): none sent Applied: catheter Estimated Blood Loss (mL): 300 Blood products transfused: none Procedure in detail: The patient was brought to the operating room where she underwent bolus in her epidural for anesthesia. She was placed in a supine position with a left lateral tilt. A Reyes catheter was in place. Pulsatile stockings were placed and functional throughout the case. 2 g of Ancef were given IV prior to the incision. Warming was in place. The patient was prepped and draped in usual sterile fashion. A low transverse incision was made with a scalpel and the incision was carried down to the fascial layer which was incised transversely with scissors. The midline attachments are superiorly and inferiorly. Some bleeding was controlled Bovie. The rectus muscles were in the midline and the peritoneal incision was made with no damage to internal structures. The peritoneum was incised and superiorly and inferiorly. Bladder blade was placed and a bladder flap was developed and the bladder held away from the lower uterine segment. An incision was made in the uterus with the scalpel and the incision was extended with stretching. The head was elevated out of the abdomen and with fundal pressure the baby was delivered. The was bulb suctioned for clear fluid and handed off to the warmer. Cord blood was collected. The placenta delivered spontaneously with traction. The uterus was cleaned with clean laps. The uterine incision was closed in 2 layers of 0 chromic suture the first a running locking layer the second an imbricating layer. The bladder peritoneum was repaired with 2-0 Polysorb suture. The gutters were cleaned of any remaining fluids and ovaries and tubes were observed to be normal. Adequate hemostasis was noted. The perineum was closed with 2-0 Polysorb suture. The fascia layer was closed with 0 Polysorb suture with 2 stitches. The incision was irrigated and adequate hemostasis noted. The incision was closed with interrupted 3-0 Polysorb sutures and then a subcuticular stitch of 4-0 Polysorb suture. Steri-Strips were placed. The uterus was massaged to remove any clots. The patient went to recovery room in good condition. Counts of instruments and sponges were correct. Complications: none Condition: stable Disposition: other ( Center) Plan for aftercare: Routine post section
[2018-03-28 21:27] VITALS: BP 128/74; PULSE 96; RESP 17; O2SAT 99
[2018-03-28 21:33] VITALS: BP 120/67; PULSE 92; RESP 19; TEMP 37; O2SAT 99
[2018-03-29] MEDS: OXYCODONE/ACETAMINOPHEN 5/325 TABLET 2 TAB PO ×5 (02:14→21:40)
[2018-03-29] MEDS: KETOROLAC 30 MG/ML VIAL IV ×3 (03:59→16:31)
--- NOTE | 2018-03-29 07:12 | PM.OBPN.1 ---
Subjective - OB Interval history: Postoperative day #1 Patient comments: pain well controlled [place] baby status: doing well [place] feeding status: exclusively breast feeding Narrative: Patient denies signs or symptoms of preeclampsia. She states her pain is under control. She was able to shower. Her catheter was removed. Date Patient Seen: 03/29/18 Time Patient Seen: 07:12 Exam Vital Signs (past 8 hours): T-max 100.3? T present 98.7, blood pressure 130/70, pulse 96 Oxygen Delivery Method Room Air Narrative Exam Narrative: Abdomen is soft, nontender. Uterus is firm, at U, appropriately tender. Dressing is clean dry and intact. Mild lochia. Extremities with trace edema and nontender. Objective Labs Result Diagrams: 03/28/18 07:50 Labs: Laboratory Results - last 24 hr 03/28/18 03/28/18 07:50 07:50 WBC 10.6 RBC 4.35 Hgb 13.0 Hct 38.1 MCV 87.6 MCH 29.8 MCHC 34.1 RDW 14.9 H Plt Count 281 Neut % (Auto) 69.8 Lymph % (Auto) 22.3 L [place] % (Auto) 6.7 Eos % (Auto) 1.0 L Baso % (Auto) 0.2 Neut # (Auto) 7400 H Blood Type O Positive Antibody Screen Negative Assessment & Plan (1) Delivery by section of full-term : Status: Acute Current Visit: Yes (2) 39 weeks gestation of : Status: Acute Current Visit: Yes (3) PROM (premature rupture of membranes): Status: Acute Current Visit: Yes (4) Pseudotumor cerebri: Status: Acute Current Visit: Yes (5) 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
--- NOTE | 2018-03-29 07:15 | P.PNOB_ITS ---
Subjective - OB Interval history: Postoperative day #1 Patient comments: pain well controlled [place] baby status: doing well [place] feeding status: exclusively breast feeding Narrative: Patient denies signs or symptoms of preeclampsia. She states her pain is under control. She was able to shower. Her catheter was removed. Date Patient Seen: 03/29/18 Time Patient Seen: 07:12 Exam Vital Signs (past 8 hours): T-max 100.3? T present 98.7, blood pressure 130/70, pulse 96 Oxygen Delivery Method Room Air Narrative Exam Narrative: Abdomen is soft, nontender. Uterus is firm, at U, appropriately tender. Dressing is clean dry and intact. Mild lochia. Extremities with trace edema and nontender. Objective Labs Result Diagrams: 03/28/18 07:50 Labs: Laboratory Results - last 24 hr 03/28/18 03/28/18 07:50 07:50 WBC 10.6 RBC 4.35 Hgb 13.0 Hct 38.1 MCV 87.6 MCH 29.8 MCHC 34.1 RDW 14.9 H Plt Count 281 Neut % (Auto) 69.8 Lymph % (Auto) 22.3 L [place] % (Auto) 6.7 Eos % (Auto) 1.0 L Baso % (Auto) 0.2 Neut # (Auto) 7400 H Blood Type O Positive Antibody Screen Negative Assessment & Plan (1) Delivery by section of full-term : Status: Acute Current Visit: Yes (2) 39 weeks gestation of : Status: Acute Current Visit: Yes (3) PROM (premature rupture of membranes): Status: Acute Current Visit: Yes (4) Pseudotumor cerebri: Status: Acute Current Visit: Yes (5) S/P WEFT STRAIGHTENER shunt: Status: Acute Current Visit: Yes Plan day: 1 plan OB: routine postop care Time Spent With Patient Total time spent is greater than 50% in coordination of care (as documented) at patient's floor/unit and/or counseling patient: less than 15 minutes
[2018-03-29 08:17] LABS: Add Manual Diff / Slide Review NO; Basophils Percent Auto 0.1 % (0-2); Eosinophils Percent Auto 0.3 % (2-4); Hematocrit 33.8 % (36-46); Hemoglobin 11.1 g/dL (12.0-16.0); Lymphocytes Percent Auto 11.4 % (25-40); Mean Corpuscular HGB Conc 32.7 % (30-36); Mean Corpuscular Hemoglobin 28.8 PG (26-34); Mean Corpuscular Volume 87.8 fL (80-100); Monocytes Percent Auto 6.3 % (3-14); Neutrophils Absolute Auto 11900 /uL (1500-7000); Neutrophils Percent Auto 81.9 % (50-75); Platelet Count 251 X10^3/uL (150-400); Red Blood Cell Count 3.85 X10^6/uL (4.0-5.2); Red Cell Distribution Width 14.9 % (11.6-14.8); White Blood Cell Count 14.6 X10^3/uL (4.5-11.0)
[2018-03-29] MEDS: DOCUSATE 250 MG CAPSULE PO (08:45)
[2018-03-29] MEDS: IBUPROFEN 600 MG TABLET PO (21:40)
[2018-03-30] MEDS: OXYCODONE/ACETAMINOPHEN 5/325 TABLET 2 TAB PO ×2 (02:36→07:18)
[2018-03-30] MEDS: IBUPROFEN 600 MG TABLET PO ×2 (05:03→10:23)
--- NOTE | 2018-03-30 08:05 | P.DS_ITS ---
Discharge Providers Date of admission: 03/28/18 06:12 Primary care physician: Ned Banks MD Consults: 03/28/18 22:18 Consult to Hazardous Material Technician Routine Comment: Discharge provider: Annabelle Mendieta MD Discharge Date: 03/30/18 Summary Date Patient Seen: 03/30/18 Time Patient Seen: 08:04 Hospital Course: Patient arrived on Labor and delivery in active labor. She received an epidural catheter for pain control. She had 1st stage arrest at 6 cm. She underwent a primary low-transverse section and delivered a viable male weighing 8 lb 8.5 oz, 3870 g. Patient did well . She denies any signs or symptoms of preeclampsia. She is ambulatory. Her pain is under control. She is passing gas. Blood pressure 119/77, pulse of 89, temperature 97.5? Patient's abdomen is soft, nontender. Uterus is firm, at U, appropriately tender. Dressing is clean dry intact. Mild lochia. Extremities with trace edema and nontender. 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: Status: Acute Status at Discharge Functional status at discharge: independent ambulation Overall status at discharge: patient is progressing back to baseline Time Spent with Patient Total time spent providing and/or coordinating discharge services: Less than 30 minutes Objective Labs Result Diagrams: 03/29/18 06:35 Labs: Laboratory Results - last 24 hr 03/29/18 06:35 WBC 14.6 H RBC 3.85 L Hgb 11.1 L Hct 33.8 L MCV 87.8 MCH 28.8 MCHC 32.7 RDW 14.9 H Plt Count 251 Neut % (Auto) 81.9 H Lymph % (Auto) 11.4 L [place] % (Auto) 6.3 Eos % (Auto) 0.3 L Baso % (Auto) 0.1 Neut # (Auto) 60903 H Discharge Plan Discharge Plan Patient Disposition: Home Discharge Med Rec/Prescriptions Prescriptions: New oxycodone-acetaminophen 5-325 mg Tablet 2 tab PO Q4HR PRN (Reason: Pain, Severe (7-10)) Qty: 40 RF: 0 ibuprofen 600 mg Tablet 600 mg PO Q6HR PRN (Reason: As Needed For Fever/Mild Pain) Qty: 30 RF: 0 docusate sodium 250 mg Capsule 250 mg PO DAILY Qty: 20 RF: 0 Follow up/Referrals: Nde Banks MD [Primary Care Provider] - 1 Week (April 04, Monday, at 2: 45p, with Dr Mendieta for dressing removal and incision check. Check in at 2:30pm.) Provider Discharge Instructions Diet: Regular Activity: Nothing in vagina for 4 weeks. Do not lift over 20 lb. Skin/Wound/Dressing Care Report to your healthcare provider any signs of infection, such as:: chills, fever, increased pain and unusual redness Dressing: Leave dressing in place until postop appointment in 1 week Discharge Data Primary Care Provider: Ned Banks Attending Provider: Aurelia Headley Admmeeta Date/Time: 03/28/18 06:12
[2018-03-30 09:00] VITALS: BP 115/71; PULSE 95; RESP 18; TEMP 36.7
[2018-03-30] MEDS: DOCUSATE 250 MG CAPSULE PO (10:22)
[2018-03-30] MEDS: OXYCODONE IR 5 MG TABLET 10 MG PO ×2 (10:41→14:26)
[2018-03-30] MEDS: ONDANSETRON 4 MG ODT PO (10:42)
== END 2018-03-30 15:50 | disposition home or self-care (01) | DRG 788 ==
PROVIDERS: Specialist; Admitting Provider Family Medicine; Family Provider Family Medicine; PCP Family Medicine; Visit Provider Family Medicine
PROC: 10D00Z1 Extraction of Products of Conception, Low, Open Approach (ICD-10-PCS; CPT 59514; principal; 2018-03-28 20:00)
DX: O42.02 Full-term premature rupture of membranes, onset of labor within 24 hours of rupture (principal); O75.89 Other specified complications of labor and delivery; G93.2 Benign intracranial hypertension; Z3A.39 39 weeks gestation of pregnancy; Z37.0 Single live birth; Z98.2 Presence of cerebrospinal fluid drainage device
CPT/HCPCS: 01967; 01968; 59025; 59050; 59510; 59514; 85025; 86850; 86900; 86901; G0378; G0379; J0690; J1885; J2250; J2274; J2590; J3010